=== PATIENT | male | born 1965 | race Caucasian/White ===

== ENCOUNTER 2020-02-10 10:52 | Outpatient (CLI) | payer BC, SELFPAY ==
[2020-02-10 12:37] LABS: SARS-CoV-2 Ag Negative (Negative)
== END 2020-02-10 10:53 | disposition home or self-care (01) ==
PROVIDERS: PCP Internal Medicine; Visit Provider Internal Medicine
DX: Z20.828 Contact with and (suspected) exposure to other viral communicable diseases (principal)
CPT/HCPCS: 87426

== ENCOUNTER 2020-11-06 10:12 | Outpatient (CLI) | payer SELFPAY ==
[2020-11-06 11:16] LABS: SARS-CoV-2 Ag Negative (Negative)
== END 2020-11-06 10:13 | disposition home or self-care (01) ==
LOC: CHSLAB 10:14
PROVIDERS: PCP Internal Medicine; Visit Provider Internal Medicine
DX: Z20.822 Contact with and (suspected) exposure to COVID-19 (principal)
CPT/HCPCS: 87426; C9803

== ENCOUNTER 2021-02-07 11:30 | Outpatient (CLI) | payer SELFPAY ==
[2021-02-07 13:26] LABS: Influenza A QL RT-PCR Negative (Negative); Influenza B QL RT-PCR Negative (Negative); SARS-CoV-2 RNA PCR Negative (Negative)
== END 2021-02-07 11:31 | disposition home or self-care (01) ==
PROVIDERS: PCP Internal Medicine; Visit Provider Internal Medicine
DX: R05.9 Cough, unspecified (principal); J02.9 Acute pharyngitis, unspecified; Z20.822 Contact with and (suspected) exposure to COVID-19
CPT/HCPCS: 87502; C9803; U0003; U0005

== ENCOUNTER 2021-06-04 10:22 | Outpatient (CLI) | payer OTHER, SELFPAY ==
--- NOTE | ~2021-06-04 | CT_ITS ---
EXAMINATION:CT lung screening DATE: 06/04/2021 10:41 INDICATION: Personal history of tobacco dependence. Current smoker with 30 pack year history. TECHNIQUE: Computed tomography (CT) of the chest was performed without intravenous contrast. Automate d exposure control and iterative reconstruction technique were employed. The dose-length product (DLP ) was 182.88 mGy-cm. COMPARISON: None. FINDINGS: There is mild atelectasis bilaterally. There is a 2 mm nodule in left lower lobe. No pleura l effusion. The heart size is normal. There are coronary artery calcifications. No pericardial effusi on. There is diffuse hepatic steatosis. Calcifications in the liver consistent with old granulomatous disease. There is a 12 mm cyst in the liver. There is mild thoracic spondylosis. IMPRESSION: 1. Lung-RADS category 2: Benign appearance or behavior. Continue annual screening with noncontrast lo w-dose chest CT in 12 months. Reviewed, dictated and finalized at location A. IMPRESSION: 1. Lung-RADS category 2: Benign appearance or behavior. Continue annual screeni ng with noncontrast low-dose chest CT in 12 months.
== END 2021-06-04 10:23 | disposition home or self-care (01) ==
LOC: CHSIMG 10:25
PROVIDERS: PCP Internal Medicine; Visit Provider Internal Medicine
DX: Z87.891 Personal history of nicotine dependence (principal)
CPT/HCPCS: 71271

== ENCOUNTER 2021-07-24 01:01 | Day surgery (SDC) | payer OTHER, SELFPAY ==
[2021-07-13 14:28] VITALS: BMI 33.5
[2021-07-24 09:40] VITALS: BP 160/102; PULSE 107; RESP 19; TEMP 36.5; O2SAT 98
[2021-07-24] MEDS: LACTATED RINGERS 1,000 ML 150 ML IV CONT (09:54)
--- NOTE | 2021-07-24 10:27 | PM.HPGS ---
History of Present Illness History of Present Illness Consent: Risks, benefits, and alternatives have been discussed and questions answered. Patient agrees to proceed with procedure. Chief complaint: change in bowel habits Narrative: Jacob Turcios is a 56 year old male here for first screening colonoscopy, had negative cologuard 5 years ago. Review of Systems Constitutional: Constitutional: Denies headache(s) and Denies weakness Eyes: Eyes: Denies blurry vision ENT: Reports Normal hearing present, Denies headache(s) and Denies neck pain Cardiovascular: Cardiovascular: Denies chest pain and Denies dyspnea Respiratory: Respiratory: Denies dyspnea Gastrointestinal: Gastrointestinal: Reports no additional gastrointestinal complaints Genitourinary: Genitourinary: Denies dysuria Musculoskeletal: Musculoskeletal: Denies neck pain Integumentary/Breasts: Skin/Breast: Denies dry skin Neurologic: Reports Normal hearing present, Denies headache(s) and Denies weakness Psychiatric: Psychiatric: Denies anxiety Endocrine: Endocrine: Denies change in body appearance Hematologic/Lymphatic: Hematologic/Lymphatic: Denies easy bleeding Allergic/Immunologic: Allergic/Immunologic: Denies urticaria PMFSH Past Medical History Medical History (Updated 07/24/21 @ 10:28 by Noah Schmidt MD) Colon cancer screening Social History Social History Smoking packs per day: 1 Smoking cigarettes per day: 20.0 Years smoked: 20 Smoking pack-years: 20.00 Smoking status: Heavy tobacco smoker Tobacco type: cigarettes Alcohol intake: current Alcohol use details: several drinks a week, vodka Substance use: never Substance use type: does not use Living arrangements: alone Spiritual care concerns: No Meds Home Medications and Allergies Home Medications Medication Instructions Recorded Confirmed Type atenolol 25 mg PO DAILY 07/13/21 07/13/21 History atorvastatin 20 mg PO DAILY 07/13/21 07/13/21 History Allergies Allergy/AdvReac Type Severity Reaction Status Date / Time No Known Allergies Allergy Mild Verified 07/24/21 09:39 Vital Signs Vital Signs - 24 hr 07/24/21 09:40 Temperature 97.7 F Pulse Rate 107 H Respiratory Rate 19 Blood Pressure 160/102 H Pulse Oximetry 98 Exam Const: General: comfortable and no acute distress HENMT: General nose exam: Normal nares present Eyes: General: appearance normal, both eyes and all related structures Neck: Neck: no JVD Resp: Auscultation: clear to auscultation bilaterally Cardio: Rate: regular rate Rhythm: regular rhythm GI: Inspection: non-distended GI Palp: Yes Soft to palpation Skin: General skin exam: normal color Neuro: General: gait normal Speech: normal speech Extrem: General: normal to inspection Psych: Mental Status: mental status grossly normal Assessment and Plan Assessment and plan (1) Colon cancer screening: Code(s): Z12.11 - Encounter for screening for malignant neoplasm of colon Status: Acute Assessment and Plan: colonoscopy
[2021-07-24 10:50] VITALS: BP 122/90; PULSE 101; RESP 33; O2SAT 99
[2021-07-24 11:00] VITALS: BP 125/96; PULSE 96; RESP 33; O2SAT 99
[2021-07-24 11:10] VITALS: BP 142/93; PULSE 96; RESP 24; O2SAT 99
== END 2021-07-24 11:17 | disposition home or self-care (01) ==
PROVIDERS: PCP Internal Medicine; Visit Provider Internal Medicine Gastroenterology
PROC: 0DJD8ZZ Inspection of Lower Intestinal Tract, Via Natural or Artificial Opening Endoscopic (ICD-10-PCS; CPT 45378; principal; 2021-07-24 10:45)
DX: Z12.11 Encounter for screening for malignant neoplasm of colon (principal); D12.2 Benign neoplasm of ascending colon; K57.30 Diverticulosis of large intestine without perforation or abscess without bleeding; K64.8 Other hemorrhoids; F17.210 Nicotine dependence, cigarettes, uncomplicated
CPT/HCPCS: 45385; 88305; J2704; J7120

== ENCOUNTER → 2022-11-12 12:46 | Outpatient (CLI) | payer OTHER, SELFPAY ==
--- NOTE | ~2022-11-12 | CT_ITS ---
EXAMINATION:CT lung screening DATE: 11/12/2022 13:00 INDICATION: Personal history of nicotine dependence. Current smoker with 30 pack year history. TECHNIQUE: Computed tomography (CT) of the chest was performed without intravenous contrast. Automate d exposure control and iterative reconstruction technique were employed. The dose-length product (DLP ) was 175.44 mGy-cm. COMPARISON: Chest CT 06/04/2021 FINDINGS: There is mild atelectasis bilaterally. No pleural effusion. The heart size is normal. There are coronary artery calcifications. No pericardial effusion. A calcification in the liver is consist ent with old granulomatous disease. There is a 12 mm cyst in the liver. There is thoracic kyphosis an d mild spondylosis. There are bridging endplate osteophytes at multiple levels in the spine, consiste nt with diffuse idiopathic skeletal hyperostosis (DISH). There is mild chronic anterior wedging of mu ltiple vertebral bodies. IMPRESSION: 1. Lung-RADS category 1: Negative. Continue annual screening with noncontrast low-dose chest CT in 12 months. Reviewed, dictated and finalized at location A. IMPRESSION: 1. Lung-RADS category 1: Negative. Continue annual screening with noncontrast l ow-dose chest CT in 12 months.
== END ==
PROVIDERS: PCP Internal Medicine; Visit Provider Internal Medicine
DX: Z12.2 Encounter for screening for malignant neoplasm of respiratory organs (principal); Z87.891 Personal history of nicotine dependence
CPT/HCPCS: 71271

== ENCOUNTER 2024-06-28 09:18 | Outpatient (CLI) | payer OTHER, SELFPAY ==
--- NOTE | ~2024-06-28 | US_ITS ---
ULTRASOUND ANKLE BRACHIAL INDEX Ordering provider: Mana Priest, CUTTING TABLE OPERATOR FIRST History: . peripheral vascular disease/leg swelling . Comparison: None. FINDINGS: Right brachial systolic blood pressure: 143 mmHg Left brachial systolic blood pressure: 146 mmHg Right ankle systolic blood pressure: 180 mmHg Left ankle systolic blood pressure: 169 mmHg Right ankle/arm index (SENAIT): 1.23 Left ankle/arm index (SENAIT): 1.16 Note regarding SENAIT: --Normal= 1.0 or slightly greater. --Claudication (moderate stenosis or occlusive state)= 0.6 to 0.9. --Rest pain (severe occlusive states)= 0.5 or less. Vessels: IMPRESSION: No evidence of stenosis seen bilaterally. Normal bilateral SENAIT. Reviewed, dictated and finalized at location A.
--- OUTSIDE RECORDS SUMMARY | 2024-06-28 10:22 | XMS_ITS | CONTINUITY OF CARE DOCUMENT ---
Author Name cecy sam Address Unknown Organization [facility] Address [id number] [place] [address] [address] [place] [address] Phone [phone] Care Team Providers Care Fish And Game Warden Name Role Phone Oleg NEGRON, Lei Unavailable AUBREY NEGRON, RUNDA Unavailable AUBREY NEGRON, RUNDA Unavailable [phone] PROBLEMS Condition Status Date Provider Notes Cardiology examination active Lei Dejesus MD Dizziness active Lei Dejesus MD Hyperlipidemia active Lei Dejesus MD Hypotension completed - Lei ochoa MD Ethanol abuse active Lei Dejesus MD Tobacco abuse active Lei Dejesus MD SLEEP APNEA active Lei Dejesus MD CKD active Lei Dejesus MD HYPERTENSION active Lei Dejesus MD Family history of CAD active Lei Esteban Leg edema, bilateral active Lei Dejesus MD ENCOUNTERS Date Type Provider Location Encounter Diag nosis - In-person encounter Office Visit [facility] [place] [facility] - In-person encounter Office Visit Lei Dejesus MD [facility] Hypotension - In-person encounter Office Visit Lei Dejesus MD [facility] Leg edema, bilateral - In-person encounter Office Visit Lei Dejesus MD [facility] Cardiology examinationDizzinessHyperlipidemiaEthanol abuseTobacco abuseSLEEP APNEACKDHYPERTENSIONFamily history of CAD VITAL SIGNS Date Observation Value Provider Body Mass Index (Ratio) 32.08 kg/m2 Jose Dejesus MD blood pressure, cuff size regular Cy monika Leal blood pressure, diastolic 94 mm[Hg] Cy monika Leal blood pressure, systolic 131 mm[Hg] Concepción love Elvis oxygen saturation, oximetry 97 % Cristy Leal respiratory rate E&M 16 /min Cristy Leal pulse rate 78 /min Cristy gibson weight E&M 211 [lb_av] Cristy Denise l height E&M 68 [in_i] Cristy gibson Body Mass Index (Ratio) 31.93 kg/m2 Jose Dejesus MD blood pressure, diastolic 85 mm[Hg] Fe kimani Martinez blood pressure, systolic 121 mm[Hg] Fel icia Martinez oxygen saturation, oximetry 98 % Lisa Martinez respiratory rate E&M 16 /min Lisa Martinez pulse rate 89 /min Lisa Martinez weight E&M 210 [lb_av] Lisa Martinez height E&M 68 [in_i] Lisa Martinez temperature site temporal Kimberley Aldana se temperature in centigrade E&M 36.50 Rebecca Kimberley Puhse temperature E&M 97.7 [degF] Kimberley Puhs e blood pressure, diastolic 76 mm[Hg] Lee Gunderson blood pressure, systolic 110 mm[Hg] Marichuy Gunderson oxygen saturation, oximetry 95 % Stanton Gunderson respiratory rate E&M 18 /min Hayder Gunderson pulse rate 86 /min Stanton betts Body Mass Index (Ratio) 32.66 kg/m2 Aniyah Gunderson weight in kilograms E&M 97.43 kg Aniyah Gunderson weight E&M 214.8 [lb_av] Stanton aguilar height E&M 68 [in_i] Stanton betts height in centimeters E&M 172.72 cm Lee Gunderson Body Mass Index (Ratio) 29.65 kg/m2 Jose Dejesus MD blood pressure, diastolic 58 mm[Hg] Cy monika Leal blood pressure, systolic 81 mm[Hg] Concepción ivan Leal blood pressure, cuff size regular Cy monika Leal respiratory rate E&M 16 /min Cristy Leal pulse rate 104 /min Cristy Campbel l oxygen saturation, oximetry 96 % Cristy Leal height E&M 68 [in_i] Cristy Campbel l weight E&M 195 [lb_av] Cristy Campbel l temperature site temporal Nesha Tank sley temperature E&M 97.7 [degF] Nesha Tanks daniel ALLERGIES No Known Drug Allergies RESULTS Date Observation Value Provider Reference Range Interpretation Location hyaline casts, urine NONE SEEN [facility] NONE SEEN Normal bacteria, urine microscopy NONE SEEN [facility] NONE SEEN Normal epithelial cells, urine NONE SEEN [facility] < OR = 5 Normal RBC urine by microscopy NONE SEEN [facility] < OR = 2 Normal WBC urine on microscopy NONE SEEN /HPF [facility] < OR = 5 Normal leukocyte esterase, urine, by dipstick NEGATIVE [facility] NEGATIVE Normal nitrite, urine, semiquantitative NEGATIVE [facility] NEGATIVE Normal protein, urine, semiquantitative (dipstick) NEGATIVE [facility] NEGATIVE Normal blood in urine (hemoglobin) by dipstick NEGATIVE [facility] NEGATIVE Normal ketones, urine, by test strip NEGATIVE [facility] NEGATIVE Normal bilirubin, urine NEGATIVE [facility] NEGATIVE Normal glucose, urine, semiquantitative NEGATIVE [facility] NEGATIVE Normal pH, urine, semiquantitative 5.5 [facility] 5.0-8.0 Normal specific gravity, urine 1.025 [facility] 1.001-1.035 Normal appearance, urine CLEAR [facility] CLEAR Normal urine color DARK YELLOW [facility] YELLOW Normal calcium, serum 10.0 mg/dL [facility] 8.6-10.3 Normal carbon dioxide, venous blood 28 mmol/L [facility] 20-32 Normal chloride, serum 103 mmol/L [facility] 98-110 Normal potassium, serum 4.1 mmol/L [facility] 3.5-5.3 Normal sodium, serum 139 mmol/L [facility] 135-146 Normal urea nitrogen/creatinine ratio, serum NOT APPLICABLE (calc) [facility] 6-22 Estimated Glomerular Filtration Rate (calc) 109 mL/min/{1.73_ m2} [facility] > OR = 60 Normal creatinine, serum 0.92 mg/dL [facility] 0.70-1.33 Normal urea nitrogen, blood 16 mg/dL [facility] 7-25 Normal blood glucose, random 110 mg/dL [facility] 65-99 High microalbumin/creati nine ratio, urine 3 MCG/MG CREAT [facility] <30 Normal microalbumin/total urine volume 4 mg/L [facility] Units converted. See lab report for original value. Normal creatinine, random, urine 152 mg/dL [facility] 20-320 Normal cholesterol, non-HDL, total 189 MG/DL (CALC) [facility] <130 High cholesterol/HDL ratio, serum, percent 6.0 (calc) [facility] <5.0 High LDL cholesterol, serum 164 MG/DL (CALC) [facility] High triglyceride, serum, fasting 130 mg/dL [facility] <150 Normal HDL cholesterol, serum 38 mg/dL [facility] > OR = 40 Low cholesterol, serum 227 mg/dL [facility] <200 High calcium, serum 9.1 mg/dL [facility] 8.6-10.3 Normal carbon dioxide, venous blood 27 mmol/L [facility] 20-32 Normal chloride, serum 106 mmol/L [facility] 98-110 Normal potassium, serum 4.3 mmol/L [facility] 3.5-5.3 Normal sodium, serum 140 mmol/L [facility] 135-146 Normal urea nitrogen/creatinine ratio, serum NOT APPLICABLE (calc) [facility] 6-22 Estimated Glomerular Filtration Rate (calc) 95 mL/min/{1.73_ m2} [facility] > OR = 60 Normal creatinine, serum 1.03 mg/dL [facility] 0.70-1.33 Normal urea nitrogen, blood 10 mg/dL [facility] 7-25 Normal blood glucose, random 109 mg/dL [facility] 65-99 High cholesterol, non-HDL, total 116 MG/DL (CALC) [facility] <130 Normal cholesterol/HDL ratio, serum, percent 4.4 (calc) [facility] <5.0 Normal LDL cholesterol, serum 95 MG/DL (CALC) [facility] Normal triglyceride, serum, fasting 113 mg/dL [facility] <150 Normal HDL cholesterol, serum 34 mg/dL [facility] > OR = 40 Low cholesterol, serum 150 mg/dL [facility] <200 Normal hyaline casts, urine NONE SEEN [facility] NONE SEEN Normal bacteria, urine microscopy NONE SEEN [facility] NONE SEEN Normal epithelial cells, urine NONE SEEN [facility] < OR = 5 Normal RBC urine by microscopy NONE SEEN [facility] < OR = 2 Normal WBC urine on microscopy NONE SEEN /HPF [facility] < OR = 5 Normal leukocyte esterase, urine, by dipstick NEGATIVE [facility] NEGATIVE Normal nitrite, urine, semiquantitative NEGATIVE [facility] NEGATIVE Normal protein, urine, semiquantitative (dipstick) NEGATIVE [facility] NEGATIVE Normal blood in urine (hemoglobin) by dipstick NEGATIVE [facility] NEGATIVE Normal ketones, urine, by test strip NEGATIVE [facility] NEGATIVE Normal bilirubin, urine NEGATIVE [facility] NEGATIVE Normal glucose, urine, semiquantitative NEGATIVE [facility] NEGATIVE Normal pH, urine, semiquantitative 7.5 [facility] 5.0-8.0 Normal specific gravity, urine 1.012 [facility] 1.001-1.035 Normal appearance, urine CLEAR [facility] CLEAR Normal urine color YELLOW [facility] YELLOW Normal microalbumin/creati nine ratio, urine NOTE mcg/mg creat [facility] <30 Normal microalbumin/total urine volume <0.2 mg/dL [facility] See Note: Normal creatinine, random, urine 67 mg/dL [facility] 20-320 Normal calcium, serum 8.9 mg/dL [facility] 8.6-10.3 Normal carbon dioxide, venous blood 24 mmol/L [facility] 20-32 Normal chloride, serum 110 mmol/L [facility] 98-110 Normal potassium, serum 4.1 mmol/L [facility] 3.5-5.3 Normal sodium, serum 141 mmol/L [facility] 135-146 Normal urea nitrogen/creatinine ratio, serum NOT APPLICABLE (calc) [facility] 6-22 Estimated Glomerular Filtration Rate (calc) 93 mL/min/{1.73_ m2} [facility] > OR = 60 Normal creatinine, serum 1.05 mg/dL [facility] 0.70-1.33 Normal urea nitrogen, blood 10 mg/dL [facility] 7-25 Normal blood glucose, random 79 mg/dL [facility] 65-99 Normal HISTORY OF MEDICATION USE Medication Status Instructions Dates Provider Indications Com ments LASIX 20 MG ORAL TABLET active Take one tablet per day 2 Lei Dejesus MD TYLENOL CAPSULE active as needed Stanton Gunderson VASCEPA 1 GM ORAL CAPSULE completed take 1 tablet twice a day 8 - 7 Lei Dejesus MD ATORVASTATIN CALCIUM 10 MG ORAL TABLET active Take one tablet per day 8 Lei Dejesus MD SOCIAL HISTORY Date Observation Value Provider social history E&M S moking History: P atient currently smokes every day. P atient has been counseled to quit. Lei Dejesus MD social history reviewed E&M revi ewed - no changes required Lei Dejesus MD smoking/tobacco cess ation, patient education and counseling yes Cristy Leal number of years as a smoker 15 a Cristy Elvis smoking history, tot al pack/day 1 PPD Cristy Elvis cigarette use yes Cristy Timothy simeon smoking status Current every day smoker Kurt rosennikolay Elvis social history E&M S moking History: P atient currently smokes every day. P atient has been counseled to quit. Lei Dejesus MD social history reviewed E&M revi ewed - no changes required Lei Dejesus MD smoking status Current every day smoker U gregorio Dejesus MD smoking/tobacco cess ation, patient education and counseling yes Lisa Juan number of years as a smoker 15 a Lisa Martinez smoking history, tot al pack/day 1 PPD Lisa Martinez cigarette use yes Lisa Juan social history reviewed E&M revi ewed - no changes required Lei Dejesus MD smoking/tobacco cess ation, patient education and counseling yes Lei Dejesus MD smoking status Current every day smoker U gregorio Dejesus MD social history E&M S moking History: Anna Marie asencio currently smokes every day. Anna Marie asencio has been counseled to quit. Lei Dejesus MD number of years as a smoker 15 a Stantonzeke Gunderson smoking history, tot al pack/day 1 PPD Stanton Gunderson cigarette use yes StantonJacinda Qureshi lauren alcohol use, type Vodka Lei robles MD number of grandchildren Lei Dejesus MD U gregorio Dejesus MD drug use no Lei Dejesus MD alcohol use, average drinks per day 4+ Lei Dejesus MD alcohol use yes Lei Dejesus MD social history E&M S moking History: Anna Marie asencio currently smokes every day. P elif has been counseled to quit. Lei Dejesus MD social history reviewed E&M revi ewed - no changes required Lei Dejesus MD smoking/tobacco cess ation, patient education and counseling yes Lei Dejesus MD number of years as a smoker 15 a Cristy Leal smoking history, tot al pack/day 1 PPD Cristy Leal cigarette use yes Cristy simeon smoking status Current every day smoker C abilio Leal FAMILY HISTORY Family Member Condition Father Family History of Co ronary Artery Disease: Father Family History of Di abetes: INSURANCE PROVIDERS Payer name Policy type / Coverage type Gary red republican ID [facility] [id number] 1 ADVANCE DIRECTIVES Name Date DISCUSSED - NO DECISION MADE TREATMENT PLAN Date Name Performer Cardiology follow up :Will obtain CMP, Lipid panel before 3 month f/u. LDL is elevated, triglycerides are stable at 130. D C vascepa S tart Atorvastatin 10mg one tablet per day Lei Dejesus MD Cardiology follow up :The Patient was reencouraged to stop smoking. Lei Dejesus MD Cardiology follow up :Patient continues to have swelling in his legs. Will repeat doppler at 3 month if edema persists. Have advised to continue taking lasix PRN Lei Dejesus MD Cardiology follow up eLi ochoa MD Cardiology follow up :Will obtain CMP, Lipid panel before 3 month f/u. LDL is elevated, triglycerides are stable at 130. Lei Dejesus MD Cardiology:Patient i s on Vascepa and is experiencing swelling of the legs/ankles, which is a potential side effect. I have advised the patient to stop Vascepa for 4 days and see if his swelling improves. I have requested that he calls me after these 4 days. Lei Dejesus MD Cardiology:CHOL: 150 (09/14/2019) LDL: 95 MG/DL (CALC) (09/14/2019) HDL: 34 (09/14/2019) T (09/14/2019) His updated medication list for this problem includes: Vascepa 1 Gm Oral Capsule (Icosapent ethyl) ..... Take 1 tablet twice a day Atorvastatin Calcium 40 Mg Oral Tablet (Atorvastatin calcium) ..... Take 1 tab daily Lei Dejesus MD Cardiology: B P today: 121/85 P rior BP: 110/76 (08/30/2019) Labs Reviewed: C reat: 1.03 (09/14/2019) C hol: 150 (09/14/2019) HDL: 34 (09/14/2019) LDL: 95 MG/DL (CALC) (09/14/2019) T (09/14/2019) Lei Dejesus MD Cardiology Lei Dejesus MD Cardiology:Triglycer ides were previously at 1319 and in the 800s. They were taken today as 113. Lei Dejesus MD Cardiology:The Patie nt was reencouraged to stop smoking. Lei Dejesus MD Cardiology:Pt report s that dizziness has resolved since DC losartan. Will obtain echo to follow up. Lei Dejesus MD Cardiology:The pt is experiencing swelling in his ankles. Will start lasix 20mg one tablet per day. Lei Dejesus MD Cardiology:His trigl ycerides remain elevated. Pt will undergo labs: BMP, lipid profile, complete urinalysis, albumin/creatinine urine. Lei Dejesus MD Cardiology:The patie nt has significantly cut down on his drinking. Lei Dejesus MD Cardiology:Has famil y hx of premature heart disease. Will check a stress regadenosen. Lei Dejesus MD Cardiology:Pt has be en taking losartan as treatment for HTN. Will check and echo and a renal artery duplex. Lei Dejesus MD Cardiology:Scheduled to see on nephrology on Friday. Will check a kidney ultrasound. Lei Dejesus MD Cardiology:As above, will DC his losartan. Lei Dejesus MD Cardiology:Pt has sy mptoms of dizziness. His BP today in the office is 81/58. Will DC his losartan. Lei Dejesus MD Cardiology: H is updated medication list for this problem includes: Vascepa 1 Gm Oral Capsule (Icosapent ethyl) ..... Take 2 caps twice a day Atorvastatin Calcium 40 Mg Oral Tablet (Atorvastatin calcium) ..... Take 1 tab daily Lei Dejesus MD Cardiology:The Patient was reenc ouraged to stop smoking. Lei Dejesus MD Cardiology:Cessation strongly ad vised. Lei Dejesus MD Date Name LIPID PANEL COMPREHENSIVE METABO LIC PANEL, W/EGFR COMPREHENSIVE METABO LIC PANEL, W/EGFR LIPID PANEL Microalb/Creatinine Urine, Random URINALYSIS, COMPLETE LIPID PANEL BASIC METABOLIC PANE L W/EGFR Complete Echo BASIC METABOLIC PANE L W/EGFR Stress Regadenoson Kidney Ultrasound Renal Artery Duplex Complete Echo HISTORY OF PROCEDURES Procedure Date Procedure Name Provider Procedure Notes S tatus Regadenoson, 4 units Lei Dejesus MD completed Cardiolite, 2 units Lei Dejesus MD completed SPECT Images Lei Dejesus MD complet ed Stress EKG Lei Dejesus MD completed Ultrasound, retroper itoneal, complete Lei Dejesus MD completed EKG Lei Dejesus MD completed
--- OUTSIDE RECORDS SUMMARY | 2024-06-28 10:22 | XMS_ITS | Clinical Summary ---
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
--- OUTSIDE RECORDS SUMMARY | 2024-06-28 10:22 | XMS_ITS | Encounter Summary ---
Author Organization [facility] Address 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
--- OUTSIDE RECORDS SUMMARY | 2024-06-28 10:22 | XMS_ITS ---
Care Plan - [facility] Created on: June 28, 2024 CARMITA DUBON : 1965 Sex: Male Author Organization [facility] Address [address] [place] [address] Phone Care Team Providers Care Education Administrator Name Role Phone BUTCH WONG MD Primary Care Provider [phone]
--- OUTSIDE RECORDS SUMMARY | 2024-06-28 10:22 | XMS_ITS ---
Author Organization [facility] Address [address] [place] [address] Phone Care Team Providers Care Account Assistant Name Role Phone BUTCH WONG MD Primary Care Provider [phone] Plan of Treatment No Plan of Treatment Recorded Assessments Includes: Assessments for all patient encounters No Assessments Recorded Medical Equipment - Implanted Devices Includes: Current and historical Devices No Medical Equipment Recorded Medications Administered Includes: Administered Medications in patient's chart No Administered Medications Recorded Results Includes: Results from 06/29/2023 through 06/28/2024 No Results Recorded For Specified Dates History of Present Illness History of Present Illness not supported for this document type No History of Present Illness Recorded Social History No Social History Recorded - Smoking Status Unknown Medical History Includes: Medical History in patient's chart No Medical History Recorded Family History Includes: Family History in patient's chart No Family History Recorded Review of Systems Review of Systems not supported for this document type No Review of Systems Recorded Mental Status No Mental Status Recorded Functional Status No Functional Status Recorded Physical Exam Physical Exam not supported for this document type No Physical Exam Recorded Insurance Includes: Active Insurance Policies No Insurance Coverage Recorded Guarantor Relationship Effective Dates Guarantor Ph one CARMITA DUBON Self [id number] Clinical Notes Includes: Signed Clinical Notes starting from 03/29/2022 No Clinical Notes Recorded
--- OUTSIDE RECORDS SUMMARY | 2024-06-28 10:22 | XMS_ITS | Referral Summary ---
Author Organization [facility] Address [address] [place] [address] Care Team Providers Care Marker Machine Name Role Phone Pee Wills MD Unavailable Pee Wills MD Primary Care Provider [phone] Encounters Date Type Department Care Team Description 06/14/2024 Documentation [facility] [address] [place] [id number] Ainsley Augustin [facility] 06/08/2024 2:30 PM CDT Clinical Support [facility] [address] [place] [address] Zoey Lopez [facility] IBD (inflammatory bowel disease) from Last 3 Months Allergies No known active allergies Medications atorvastatin (LIPITOR) 20 mg tablet Take 1 tablet (20 mg total) by mouth daily 3 Active atenoloL (TENORMIN) 25 mg tablet Take 3 tablets (75 mg total) by mouth daily 3 Active Rybelsus 14 mg tablet Take 1 tablet (14 mg total) by mouth daily 3 Active polycarbophil (FIBERCON) 625 mg tablet Take 2 tablets (1,250 mg total) by mouth 2 (two) times a day Active adalimumab (Humira,CF, Pen) 40 mg/0.4 mL pen injector kitIndications:A nkylosing spondylitis of cervical region (HCC) Inject 0.4 mL (40 mg total) under the skin every 7 days Safety labs are required every 6 months for refills. Next labs are due 08/2024 4 kit 1 5 Active adalimumab (Humira,CF, Pen) 40 mg/0.4 mL pen injector kitIndications:A nkylosing spondylitis of cervical region (HCC) Inject 0.4 mL (40 mg total) under the skin every 7 days Safety labs are required every 6 months for refills. Next labs are due 08/2024 4 kit 2 5 06/15/19 25 Discontinu ed(Reorder ) Active Problems Problem Noted Date Diagnosed Date Follow-up examination follow ing treatment with high-risk medication 03/08/2024 Assessment & Plan (03/08/2024 7:10 PM AIRFREIGHT OPERATIONS AGENT): The patient was advised that we check labs quarterly while he is on high-risk medications. Copy of a standing order was provided to him. We also recommend vaccinations. Weight gain 03/08/2024 Assessment & Plan (03/08/2024 7:12 PM AIRFREIGHT OPERATIONS AGENT): Typically he budesonide does not contribute to a high amount of weight gain as it is mainly absorbed. Generally the weight gain is more associated with improved absorption of nutrients when disease is better controlled and increased calorie intake once food stops causing severe diarrhea. Incorporating more physical activity and cutting on his calories would help Alcohol abuse 09/29/2023 Assessment & Plan (03/08/2024 7:08 PM AIRFREIGHT OPERATIONS AGENT): The patient currently has normal liver enzymes but does have an elevated MCV and Dupuytren's. He is encouraged to cut back on his alcohol consumption. He may also find that certain forms of alcohol contribute to his GI symptoms Assessment & Plan (09/29/2023 10:34 AM CDT): I recommended he decrease to < 14 drinks/week. His liver tests are ok for now but needs to cut back. 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 We suspect that he does have colonic involvement given the very high calprotectin but that this may be more sensitive to Humira then the ileum. As he still has some symptoms despite going up on his Humira, we would like to repeat calprotectin to see if this is consistent with remission off steroids. The exact timing of his disease onset is somewhat vague but probably did not start any earlier than 1-2 years ago. We therefore would not plan on doing frequent colonoscopies but he likely will need a colonoscopy next year to document mucosal remission as he still had activity in his ileum on the November scope. Once he has been able to establish remission particularly if he has no further polyps, his screening interval likely could be stretched to at least every 3 years Elevated fecal calprotectin 09/29/2023 Assessment & Plan (03/08/2024 7:07 PM AIRFREIGHT OPERATIONS AGENT): We will repeat calprotectin At risk for difficult intubation 06/04/2023 Overview (06/04/2023): - PLEASE NOTE DIFFICULT INTUBATION DUE TO SEVERE C-SPINE ANKYLOSIS, UNABLE TO LAY SUPINE Ankylosing spondylitis of cervical region 2023 Assessment & Plan (03/08/2024 7:09 PM AIRFREIGHT OPERATIONS AGENT): The patient should follow with rheumatology for his arthritis. Assessment & Plan (09/29/2023 10:33 AM CDT): On humira. Good choice because it should cover IBD also. Blood in stool 04/04/2023 Assessment & Plan (09/29/2023 10:29 AM CDT): Urgency, blood in stool, elevated fecal calprotectin in setting of ankylosing spondylitis is highly suspcivious for IBD. Needs a colonoscopy. If IBD confirmed will work with rheum to choose a biologic that covers both. Anti-TNF is first line. If active IBD will likely optimize dose of humira before moving on to infliximab. Other option is to add MTX or aza. Active smoking and age make him not a great candidate for Farzaneh. Sclerosis of sacroiliac joint 04/04/2023 Decreased ROM of neck 03/05/2023 Stiffness of neck 03/05/2023 Neck pain 03/05/2023 Social History Tobacco Use Types Packs/Day Years Used Date Smoking Tobacco: Every Day Cigarettes 1 30.6 Started: 11/06/1993 Tobacco Cessation:Ready to Q uit: Not Asked; Counseling Given: Not Answered Social Connection and Isolat ion Panel [NHANES] Answer Date Recorded In a typical week, how many times do you talk on the phone with family, friends, or neighbors? More than three times a week 08/14/2023 How often do you get togethe r with friends or relatives? Three times a week 08/14/2023 How often do you attend chur ch or hoahaoism services? Never 08/14/2023 Do you belong to any clubs o r organizations such as gnosticist groups, unions, fraternal or athletic groups, or school groups? No 08/14/2023 How often do you attend meet ings of the clubs or organizations you belong to? Not asked 08/14/2023 Are you , , di vorced, , never , or living with a partner? 08/14/2023 AUDIT-C Answer Date Recorded Q1: How often do you have a drink containing alcohol? 4 or more times a week 03/08/2024 Q2: How many drinks containi ng alcohol do you have on a typical day when you are drinking? 5 or 6 Q3: How often do you have si x or more drinks on one occasion? Weekly 03/08/2024 Overall Financial Resource Strain (CARDIA) Answe r Date Recorded How hard is it for you to pa y for the very basics like food, housing, medical care, and heating? Not hard at all 08/14/2023 PHQ-2 Answer Date Recorded Patient Health Questionnaire-2 Score 0 08/14/2023 [facility] [place] of Occupat ional Health - Occupational Stress Questionnaire Answer Date Recorded Do you feel stress - tense, restless, nervous, or anxious, or unable to sleep at night because your mind is troubled all the time - these days? Only a little 08/14/2023 Exercise Vital Sign Answer Date Recorde d On average, how many days pe r week do you engage in moderate to strenuous exercise (like a brisk walk)? 0 days 08/14/2023 On average, how many minutes do you engage in exercise at this level? 0 min 08/14/2023 Hunger Vital Sign Answer Date Recorded Within the past 12 months, y ou worried that your food would run out before you got the money to buy more. Never true 08/14/19 24 Within the past 12 months, t he food you bought just didn't last and you didn't have money to get more. Never true 08/14/2023 PRAPARE - Transportation Answer Date Re corded In the past 12 months, has l ack of transportation kept you from medical appointments or from getting medications? No 08/2023 In the past 12 months, has l ack of transportation kept you from meetings, work, or from getting things needed for daily living? No 08/14/2023 Housing Stability Vital Sign Answer Otto e Recorded In the last 12 months, was t here a time when you were not able to pay the mortgage or rent on time? No 06/04/2023 In the last 12 months, how many places have you lived? 1 06/04/2023 In the last 12 months, was t here a time when you did not have a steady place to sleep or slept in a correction (including now)? No 06/04/2023 Personal Safety Answer Date Recorded Have you ever been in or are you currently in a harmful physical or emotional relationship or is someone making you feel afraid or unsafe? Denies 11/21/2023 Sex and Gender Information Value Date Recorded Sex Assigned at Not on file Legal Sex Male 8:19 AM AIRFREIGHT OPERATIONS AGENT Gender Identity Not on file Sexual Orientation Straight 11/15/2023 3: 20 PM CDT Last Filed Vital Signs Vital Sign Reading Time Taken Comments Blood Pressure 150/91 03/08/2024 11:20 AM AIRFREIGHT OPERATIONS AGENT Pulse 82 03/08/2024 11:20 AM AIRFREIGHT OPERATIONS AGENT Temperature 36.7 C (98 F) 03/08/2024 11:20 AM AIRFREIGHT OPERATIONS AGENT Respiratory Rate 26 11/21/2023 2:00 PM CDT Oxygen Saturation 97% 03/08/2024 11:20 AM AIRFREIGHT OPERATIONS AGENT Inhaled Oxygen Concentration - - Weight 104.3 kg (230 lb) 03/08/2024 11:20 AM AIRFREIGHT OPERATIONS AGENT Height 170.2 cm (5' 7 ) 03/08/2024 11:20 AM AIRFREIGHT OPERATIONS AGENT Body Mass Index 36.02 03/08/2024 11:20 AM AIRFREIGHT OPERATIONS AGENT Plan of Treatment Not on file Procedures Procedure Name Priority Date/Time Associated Diagnosis Comments COLONOSCOPY 11/21/2023 12:24 PM CDT HEPATITIS C ANTIBODY Routine 04/04/2023 12:31 PM AIRFREIGHT OPERATIONS AGENT from Last 3 Months or Most Recently Relevant to Health Maintenance Results * Colonoscopy (11/21/2023 12:24 PM CDT) Anatomical Region Laterality Modality Other Narrative Procedure Note Adal Graham MD - 11/21/2023 12:24 PM CDT ENDOSCOPY LAB Patient Name: Jacob Turcios Procedure Date: 11/21/2023 12:24 PM Date of : 1965 Admit Type: Outpatient Age: 58 Gender: Male Attending MD: Adal Graham M.D. Room: [facility] ENDOSCOPY ROOM 01 Note Status: Finalized Procedure: Colonoscopy Indications: Last colonoscopy 3 years ago, , Chronic diarrhea, elevated fecal calprotectin, eval for IBD Providers: Adal Graham M.D. Referring MD: Pee Wills M.D. Medicines: Monitored Anesthesia Care Complications: No immediate complications. Estimated Blood Loss: Estimated blood loss was minimal. Procedure: Pre-Anesthesia Assessment: - Immediately prior to administration ofmedications, the patient was re-assessed for adequacy to receive sedatives. The benefits, risks and alternatives of theprocedure and sedation were discussed and informed consentwas obtained. All questions were answered. Please referto the signed informed consent document in the medical record. The scope was passed under direct vision.The [id number] was introduced through the anusand advanced to the terminal ileum. The colonoscopy was performed without difficulty. The patient tolerated the procedure well. The quality of the bowel preparation was evaluated using the BBPS (BostonBowel Preparation Scale) with scores of: Right Colon = 3, Transverse Colon = 3 and Left Colon = 3 (entiremucosa seen well with no residual staining, smallfragments of stool or opaque liquid). The total BBPS score equals 9. The bowel preparation used was Miralaxvia split dose instruction. The quality of the bowel preparation was excellent. Findings: Skin tags were found on perianal exam. The terminal ileum contained multiple ulcers. Biopsies were takenwith a cold forceps for histology. Multiple small-mouthed diverticula were found in the sigmoid colonand ascending colon. An 8 mm polyp was found in the sigmoid colon. The polyp was Sanjana classification Is (protruding, sessile). The polyp was removed with a cold snare. Resection and retrieval were complete. Internal hemorrhoids were found during retroflexion. The hemorrhoids were Grade I (internal hemorrhoids that do not prolapse). The exam was otherwise normal throughout the examined colon. Biopsies were taken with a cold forceps in the entire colon for histology. Impression: - Perianal skin tags found on perianal exam. - Multiple ulcers in the terminal ileum.Biopsied. - Diverticulosis in the sigmoid colon and in the ascending colon. - One 8 mm polyp in the sigmoid colon, removed witha cold snare. Resected and retrieved. - Internal hemorrhoids. - Biopsies were taken with a cold forceps for histology in the entire colon. Recommendation: - Await pathology results. - Check adalimumab level - Repeat colonoscopy in 1 year for surveillance. - - Contact Information: During normal business hours - Please call theNurse Coordinator: [phone]. After hours, evening, nights, weekends and holidays- Please call the hospital binder operator at and ask for the GI fellow communication studies professor. Electronically signed by Adal Graham MD Adal Graham M.D. 11/21/2023 1:25:32 PM Number of Addenda: 0 Note Initiated On: 11/21/2023 12:24 PM Adal Graham MD ENDOSCOPY PROCEDURES Final Result * Hepatitis C antibody (04/04/2023 12:31 PM AIRFREIGHT OPERATIONS AGENT) Hep C Ab NON-REACTI VE NON-REACT BOOKER [facility] Comment: HCV antibody was non-reactive. There is no laboratory evidence of HCV infection. In most cases, no further action is required. However, if recent HCV exposure is suspected, a test for HCV RNA (test code 01882) is suggested. For additional information please refer to http://education.[employer]/faq/WLE68j3 (This link is being provided for informational/ educational purposes only.) 04/04/2023 12:3 1 PM AIRFREIGHT OPERATIONS AGENT 04/04/2023 12:31 PM AIRFREIGHT OPERATIONS AGENT Narrative [facility] - 04/05/2023 8:01 AM AIRFREIGHT OPERATIONS AGENT FASTING:NO FASTING: NO us Rip Telles NP LAB MICROBIOLOGY - GENERAL ORD ERABLES Final Result [facility] [id number] [address] [address] from Last 3 Months or Most Recently Relevant to Health Maintenance Insurance [facility] CHOICE PLUS [facility] CHOICE PLUS Advance Directives For more information, please contact: [phone] * Full Code (Latest Code Status on File) Date Activated Date Inactivated Comments 11/21/2023 12:12 PM 11/21/2023 6:36 PM Care Teams Marker Machine Relationship Specialty Start Date End Date Pee Wills MD PCP - General Internal Medicine 04/18/23 Pee Wills MD Referring Physician Internal Medicine 12/18/22
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
--- OUTSIDE RECORDS SUMMARY | 2024-06-28 10:22 | XMS_ITS | Clinical Summary ---
Author Organization [facility] uticon[facility] Address [address] [place] [id number] Phone Care Team Providers Care Director [facility] Name Role Phone Nuno Morales MD Primary Care Provider [phone] Allergies No known active allergies Medications albuterol HFA (ProAir HFA) 108 (90 Base) MCG/ACT inhaler ProAir HFA 90 mcg/actuation aerosol inhaler Active dicyclomine (BENTYL) 10 MG capsule TK 1 C PO TID PRN 0 Active VASCEPA 1 g capsule TK 2 CS PO BID 0 Active fluticasone (FLONASE) 50 MCG/ACT nasal spray fluticasone propionate 50 mcg/actuation nasal spray,suspension Active vardenafil (Levitra) 10 MG tablet Levitra 10 mg tablet Take 1 tablet as needed by oral route. Active Active Problems Problem Noted Date Diagnosed Date Anxiety 08/22/2019 Arthritis 08/22/2019 Essential hypertension 08/22/2019 Impotence 08/22/2019 Lesion of tongue 08/22/2019 Mild depression 08/22/2019 Obstructive sleep apnea syndrome 08/22/2019 Acute renal failure syndrome Family History Medical History Relation Comments Malignant tumor of pharynx Brother Diabetes Father Kidney disease Neg Hx Kidney stone Neg Hx Relation Status Comments Brother Father Social History Tobacco Use Types Packs/Day Years Used Date Smoking Tobacco: Every Day Cigarettes Smokeless Tobacco: Never Tobacco Cessation:Ready to Q uit: No; Counseling Given: Yes Alcohol Use Standard Drinks/Week Comments Yes 0 (1 standard drink = 0.6 oz pur e alcohol) Sex and Gender Information Value Date Recorded Sex Assigned at Not on file Legal Sex Male 9:45 AM MDT Gender Identity Not on file Sexual Orientation Not on file Last Filed Vital Signs Vital Sign Reading Time Taken Comments Blood Pressure 120/76 08/18/2019 1:20 PM CDT Pulse - - Temperature 36.8 C (98.2 F) 08/18/2019 1:20 PM CDT Respiratory Rate 18 08/18/2019 1:20 PM CDT Oxygen Saturation - - Inhaled Oxygen Concentration - - Weight 88.9 kg (196 lb) 08/18/2019 1:20 PM CDT Height 172.7 cm (5' 8 ) 08/18/2019 1:20 PM CDT Body Mass Index 29.8 08/18/2019 1:20 PM CDT Plan of Treatment Health Maintenance Due Date Last Done Comments Influenza Vaccine (Season Ended) 2024 Insurance [facility] Care Teams Director Community [facility] Nursing Relationship Specialty Start Date End Date Nuno Morales MD [address] [place] [address] [address] [place] [address] PCP - General Family Medicine 08/16/19
== END 2024-06-28 09:19 | disposition home or self-care (01) ==
LOC: CHSIMG 09:23
PROVIDERS: PCP Internal Medicine; Visit Provider Nurse Practitioner Family
DX: I73.9 Peripheral vascular disease, unspecified (principal); M79.89 Other specified soft tissue disorders
CPT/HCPCS: 93922